=== PATIENT | male | born 1980 | race Caucasian/White ===

== ENCOUNTER 2018-07-29 11:47 | Emergency (ER) | payer OTHER, SELFPAY ==
[2018-07-29 12:03] VITALS: BP 139/96; PULSE 89; RESP 18; TEMP 36.9; O2SAT 97; BMI 29.8
--- NOTE | 2018-07-29 12:05 | ED.WOUNDLAC ---
HPI - Wound/Laceration <KENIA Dennis - Last Filed: 07/29/18 22:00> General Chief Complaint: Wound/Laceration Stated Complaint: CUT ON RT HAND Time Seen by Provider: 07/29/18 12:05 Source: patient Mode of arrival: ambulatory Limitations: no limitations History of Present Illness HPI narrative: 38-year-old healthy male that is a nonsmoker here for complaint of laceration to his right hand. He states that he fell early this morning and the garage and bumped up against something and cut his right hand. He states that his last tetanus was last year. He denies any other injuries. Bleeding is controlled. Laceration to the ulnar aspect of his right hand. He is ambulatory into the emergency room. No other concerns or complaints. Review of Systems <KENIA Dennis - Last Filed: 07/29/18 22:00> Review of Systems All systems reviewed & are unremarkable except as noted in HPI and below Eyes Denies change in vision, Denies eye discharge, Denies irritation and Denies loss of vision ENT Ears, Nose, Mouth, and Throat: Denies change in voice, Denies neck pain and Denies sore throat Cardiovascular Denies chest pain, Denies irregular heart rhythm, Denies lightheadedness, Denies palpitations, Denies dyspnea, Denies dyspnea on exertion and Denies orthopnea Respiratory Denies cough, Denies dyspnea, Denies dyspnea on exertion and Denies wheezing Gastrointestinal Gastrointestinal: Denies abdominal pain, Denies change in bowel habits, Denies diarrhea, Denies nausea and Denies vomiting Genitourinary Denies hematuria, Denies flank pain, Denies urinary incontinence and Denies urinary urgency Musculoskeletal Denies neck pain Comments: Laceration right hand Integumentary/Breasts Denies pruritus, Denies erythema, Denies rash and Denies wounds Neurologic Denies confusion and Denies loss of vision Psychiatric Denies anxiety, Denies confusion, Denies depression, Denies homicidal ideation and Denies suicidal ideation Endocrine Denies palpitations Hematologic/Lymphatic Denies easy bruising Allergic/Immunologic Denies wheezing Exam <KENIA Dennis - Last Filed: 07/29/18 22:00> Initial Vital Signs Initial Vital Signs: Vital Signs Temperature 98.5 F 07/29/18 12:03 Pulse Rate 89 07/29/18 12:03 Respiratory Rate 18 07/29/18 12:03 Blood Pressure 139/96 H 07/29/18 12:03 Pulse Oximetry 97 07/29/18 12:03 Const General: cooperative and well developed Nutritional Appearance: well nourished Orientation: alert, awake, oriented x3 and not confused [facility] Mouth: oral mucosae normal and moist mucous membranes Eyes Conjunctivae: conjunctivae normal Sclera: sclerae normal Pupils: PERRL EOM: EOM intact bilaterally Resp Effort & Inspection: normal respiratory effort, able to speak in complete sentences, no respiratory distress and no use of accessory muscles Auscultation: clear to auscultation bilaterally, no rales, no rhonchi and no wheezes Cardio Rate: regular rate Rhythm: regular rhythm Heart Sounds: no click, no gallops, no murmurs and no rubs Skin General: no rashes or lesions noted, No jaundice and No petechiae Neuro General: alert, oriented x3, gait normal and no focal motor deficits Speech: speech normal Extrem Other: For cm laceration to the ulnar palmar aspect of the right hand over the MCP joint of the 5th finger. Distal sensation is intact. Distal range of motion is intact. Distal cap refill less than 2 sec. No foreign bodies. <Rory Mckenzie DO - Last Filed: 07/30/18 07:03> Initial Vital Signs Initial Vital Signs: Vital Signs Temperature 98.5 F 07/29/18 12:03 Pulse Rate 89 07/29/18 12:03 Respiratory Rate 18 07/29/18 12:03 Blood Pressure 139/96 H 07/29/18 12:03 Pulse Oximetry 97 07/29/18 12:03 Procedures <KENIA Dennis - Last Filed: 07/29/18 22:00> Laceration Repair Laceration 1: Site: hand Side (If applicable): left Size (cm): 4 Description: irregular Depth: simple, single layer Local Anesthetic: lidocaine 1% Amount of anesthesia used (mL): 4 Pre-repair: wound explored, irrigated extensively and deep structures intact Skin layer closed with: nylon Size (cm): 5-0 Number of sutures: 8 Technique: simple, interrupted Course <KENIA Dennis - Last Filed: 07/29/18 22:00> Vital Signs - 8 hr 07/29/18 12:03 Temperature 98.5 F Pulse Rate 89 Respiratory Rate 18 Blood Pressure 139/96 H Pulse Oximetry 97 <Rory Mckenzie DO - Last Filed: 07/30/18 07:03> Vital Signs - 8 hr 07/29/18 12:03 Temperature 98.5 F Pulse Rate 89 Respiratory Rate 18 Blood Pressure 139/96 H Pulse Oximetry 97 [facility] - Wound/Laceration <KENIA Dennis - Last Filed: 07/29/18 22:00> [facility] Narrative Medical decision making narrative: Laceration to the right hand was irrigated with 500 mL of normal saline. No foreign bodies appreciated on exam. Wound closed with 8 sutures sutures to be removed in 7-10 days. Tetanus is up-to-date. [id number] Tylenol or Motrin as needed for any discomfort. Dress wound daily with bacitracin and dressing. Keep wound area clean and dry for 24 hr. For any worsening symptoms return to the emergency room. Follow up with primary care provider. Discharge Plan Departure Patient Disposition: Home Clinical Impression: Laceration of hand, right Discharge Date/Time: 07/29/18 13:07 Interventions: ED Discharge Assessment Last Done: 07/29/18 13:07 Instructions: DI for Laceration Repair Activity Restrictions/Additional Instructions: Laceration of the right hand was closed with 8 sutures. Sutures to be removed in 7-10 days. Keep wound area clean and dry for 24 hr. After this timeframe may shower briefly. Dry wound after her shower dressed with bacitracin dressing. Dress wound daily with bacitracin dressing until healed. Use [id number] Tylenol or Motrin as needed for any discomfort. For any worsening symptoms or signs infection return to the emergency room. Follow up with primary care provider. Referrals: [facility] [Provider Group] <Rory Mckenzie DO - Last Filed: 07/30/18 07:03> Cosign ED Attending Rosa Attestation: I was available for consultation during this patient's emergency department encounter
[2018-07-29 13:07] VITALS: BP 136/92; PULSE 79; RESP 18; O2SAT 98
== END 2018-07-29 13:07 | disposition home or self-care (01) ==
PROVIDERS: Emergency Provider Nurse Practitioner Family
DX: S61.411A Laceration without foreign body of right hand, initial encounter (principal); W26.8XXA Contact with other sharp object(s), not elsewhere classified, initial encounter; W01.0XXA Fall on same level from slipping, tripping and stumbling without subsequent striking against object, initial encounter
CPT/HCPCS: 12002; 99283

== ENCOUNTER → 2021-02-16 08:22 | Outpatient (CLI) | payer OTHER, SELFPAY ==
[2021-02-16 09:03] LABS: Alanine Aminotransferase 32 IU/L (<50); Albumin 4.2 g/dL (3.5-5.0); Albumin Globulin Ratio 1.6 (1.0-2.8); Alkaline Phosphatase 53 U/L (38-126); Aspartate Aminotransferase 26 IU/L (17-59); Bilirubin Total 0.6 mg/dL (0.2-1.3); Blood Urea Nitrogen 19 mg/dL (9-20); Calcium 9.3 mg/dL (8.4-10.2); Carbon Dioxide 28 mmol/L (22-32); Chloride 103 mmol/L (98-107); Estimated Glomerular Filt Rate > 60.0 mL/min (>60); Globulin 2.6 g/dL (1.7-4.1); Glucose 121 mg/dL (70-100); HEMOLYSIS < 15 (0-50); Potassium 4.3 mmol/L (3.4-5.1); Sodium 139 mmol/L (137-145); Total Protein 6.8 g/dL (6.3-8.2); Uric Acid 10.4 mg/dL (3.5-8.5)
== END ==
PROVIDERS: PCP Registered Nurse; Referring Provider Registered Nurse; Visit Provider Registered Nurse
DX: M10.9 Gout, unspecified (principal)
CPT/HCPCS: 36415; 80053; 84550